=== PATIENT | female | born 1950 | race American Indian/Alaskan Native ===

== ENCOUNTER 2019-06-05 03:49 | Emergency (ER) | payer MEDICARE ==
--- NOTE | 2019-06-05 05:04 | XRay Report ---
RIGHT HIP 2 VIEWS INDICATION / CLINICAL INFORMATION: Fall with right hip pain. COMPARISON: None available. FINDINGS: BONES / JOINT(S): No acute fracture or subluxation. There is mild lower lumbar spondylosis. SOFT TISSUES: No significant abnormality. ADDITIONAL FINDINGS: None. IMPRESSION: No acute abnormality. Signer Name: Dylan Madsen MD Signed: 06/05/2019 5:00 AM Workstation Name: [id number]
--- NOTE | 2019-06-05 05:29 | Event Note ---
ED Screening Note Date of service: 06/05/19 Time: : ED Screening Note: Patient here reports that she was lying on a air mattress in the air when out of the mattress and she was try to get up. She says she got up and went to put her back in a mattress and lay down and she started having right pelvis and hip pain. She reports the pain is 10 out of 10 excruciating. Denies any fall. Pain is sharp and shooting. Denies taking any medication. Patient came by EMS. Pain is constant. Denies similar pain in the past.. Patient has a history of diabetes, CVA and DC. Assessment/plan Right hip and pelvis pain suspect lumbar radiculopathy CT scan of the lumbar spine ordered. X-ray of right hip negative findings Patient to receive Toradol 30 mg IM and Tylenol 3 2 tablets p.o. Urinalysis to be collected This initial assessment/diagnostic orders/clinical plan/treatment(s) is/are subject to change based on patients health status, clinical progression and re- assessment by fellow clinical providers in the ED. Further treatment and workup at subsequent clinical providers discretion. Patient/guardian urged not to elope from the ED as their condition may be serious if not clinically assessed and managed. Initial orders include: CT scan lumbar spine, UA. Tylenol 3 and Toradol to ma nage pain
[2019-06-05] MEDS ORDERED: KETOROLAC 60 MG/2 ML INJ IM ONE (05:32)
[2019-06-05] MEDS ORDERED: ACETAMINOPHEN W/CODEINE 300-30 MG TAB PO ONE (05:32)
[2019-06-05 05:35] VITALS: BP 195/105
--- NOTE | 2019-06-05 08:37 | Cat Scan Report ---
CT LUMBAR SPINE WITHOUT CONTRAST INDICATION / CLINICAL INFORMATION: MAIN: rt pelvis/hip pain x2days. TECHNIQUE: Axial CT images were obtained through the lumbar spine. Sagittal and coronal reformatted images were produced. All CT scans at this location are performed using CT dose reduction for ALARA by means of a utomated exposure control. COMPARISON: None available. FINDINGS: VERTEBRAE: Vertebral body heights are maintained. No acute fracture identified. ALIGNMENT: There is approximately 6 mm anterolisthesis of L4 on L5 secondary to facet arthropathy. DISC SPACES: Mild to moderate degenerative disc disease throughout the lumbar spine. A disc bulge at L4-5 results in mild narrowing of the central canal to 9 mm AP and results in moderate right and mild left foraminal narrowing. FACET JOINTS: Moderate bilateral facet hypertrophy most prominent at L4-5 and L5-S1. SPINAL CANAL: Mild central canal narrowing at L4-5 as described above. SACRUM:No significant abnormality of the visualized sacrum. PARASPINAL SOFT TISSUES: No significant abnormality. ADDITIONAL FINDINGS: The urinary bladder is moderately distended. IMPRESSION: 1. No acute abnormality of the lumbar spine. 2. Mild to moderate degenerative disc and facet disease of the lumbar spine most prominent at L4-5 wh ere there is mild central stenosis and mild to moderate bilateral foraminal narrowing, right greater than left. Signer Name: Marian Alvarez MD Signed: 06/05/2019 8:33 AM Workstation Name: [id number]
--- NOTE | 2019-06-05 08:53 | Emergency Department Report ---
ED Extremity Problem HPI - General Chief complaint: Extremity Injury, Lower Stated complaint: (R) HIP PAIN Time Seen by Provider: 06/05/19 05:29 Source: patient Mode of arrival: Wheelchair Limitations: Physical Limitation - History of Present Illness Initial comments: Patient here reports that she was lying on a air mattress in the air when out of the mattress and she was try to get up. She says she got up and went to put her back in a mattress and lay down and she started having right pelvis and hip pain. She reports the pain is 10 out of 10 excruciating. Denies any fall. Pain is sharp and shooting. Denies taking any medication. Patient came by EMS. Pain is constant. Denies similar pain in the past.. Patient has a history of diabetes, CVA and MA. Severity scale (0 -10): 2 - Related Data Previous Rx's Medication Instructions Recorded Last Taken Type Meloxicam [Mobic] 7.5 mg PO QDAY #15 tablet 06/05/19 Unknown Rx Allergies Allergy/AdvReac Type Severity Reaction Status Date / Time No Known Allergies Allergy Unverified 06/05/19 03:51 ED Review of Systems ROS: Stated complaint: (R) HIP PAIN Other details as noted in HPI ED Past Medical Hx - Past Medical History Previous Medical History?: Yes Hx CVA: Yes (2015) Hx Heart Attack/AMI: Yes (2013) Hx Diabetes: Yes Hx Asthma: Yes - Surgical History Past Surgical History?: No - Social History Smoking Status: Never Smoker - Medications Home Medications: Home Medications Medication Instructions Recorded Confirmed Last Taken Type Meloxicam [Mobic] 7.5 mg PO QDAY #15 tablet 06/05/19 Unknown Rx ED Physical Exam - General Limitations: Physical Limitation ED Course Vital Signs 06/05/19 05:34 Temperature 97.6 F Pulse Rate 101 H Respiratory 18 Rate Blood Pressure 195/105 [Left] O2 Sat by Pulse 97 Oximetry ED Medical Decision Making - Radiology Data Radiology results: report reviewed Referring Physician:ED DOCPatient Name:RIKA SCALESYPatient ID:[id number] of :[id number]:FemaleAccession:[id number] Date:9064-10-29Qkazre Status:Finalized Findings [facility] [address] [place] [address] XRay Report Signed Patient: RIKA RUTH MR#: [id number] : 1950 Acct:[id number] Age/Sex: 69 / F ADM Date: 06/05/19 Loc: ED Attending Dr: Ordering Physician: ROBSON POSADAS MD Date of Service: 06/05/19 Procedure(s): XR hip 2-3V RT Accession Number(s): [id number] cc: ROBSON POSADAS MD Fluoro Time In Minutes: RIGHT HIP 2 VIEWS INDICATION / CLINICAL INFORMATION: Fall with right hip pain. COMPARISON: None available. FINDINGS: BONES / JOINT(S): No acute fracture or subluxation. There is mild lower lumbar s pondylosis. SOFT TISSUES: No significant abnormality. ADDITIONAL FINDINGS: None. IMPRESSION: No acute abnormality. Signer Name: Carmelina Madsen MD Signed: 06/05/2019 5:00 AM Workstation Name: [email or web address] Transcribed By: RT Dictated By: Carmelina Madsen MD Electronically Authenticated By: Carmelian Madsen MD Signed Date/Time: 06/05/19 0500 DD/ 0459 TD/TT: Patient: RIKA RUTH MR#: [id number] : 1950 Acct:[id number] Age/Sex: 69 / F ADM Date: 06/05/19 Loc: ED Attending Dr: Ordering Physician: MONTSE CHAUHAN Date of Service: 06/05/19 Procedure(s): CT lumbar spine wo con Accession Number(s): [id number] cc: MONTSE CHAUHAN CT LUMBAR SPINE WITHOUT CONTRAST INDICATION / CLINICAL INFORMATION: MAIN: rt pelvis/hip pain x2days. TECHNIQUE: Axial CT images were obtained through the lumbar spine. Sagittal and coronal reformatted images were produced. All CT scans at this location are performed using CT dose reduction for ALARA by means of automated exposure control. COMPARISON: None available. FINDINGS: VERTEBRAE: Vertebral body heights are maintained. No acute fracture identified. ALIGNMENT: There is approximately 6 mm anterolisthesis of L4 on L5 secondary to facet arthropathy. DISC SPACES: Mild to moderate degenerative disc disease throughout the lumbar spine. A disc bulge at L4-5 results in mild narrowing of the central canal to 9 mm AP and results in moderate right and mild left foraminal narrowing. FACET JOINTS: Moderate bilateral facet hypertrophy most prominent at L4-5 and L5-S1. SPINAL CANAL: Mild central canal narrowing at L4-5 as described above. SACRUM:No significant abnormality of the visualized sacrum. PARASPINAL SOFT TISSUES: No significant abnormality. ADDITIONAL FINDINGS: The urinary bladder is moderately distended. IMPRESSION: 1. No acute abnormality of the lumbar spine. 2. Mild to moderate degenerative disc and facet disease of the lumbar spine most prominent at L4-5 where there is mild central stenosis and mild to moderate bilateral foraminal narrowing, right greater than left. Signer Name: Marian Alvarez MD Signed: 06/05/2019 8:33 AM Workstation Name: [id number] Transcribed By: [facility] Dictated By: Marian Alvarez MD Electronically Authenticated By: Marian Alvarez MD Signed Date/Time: 06/05/19832 DD/ 2 TD/TT: - Medical Decision Making Patient here reports that she was lying on a air mattress in the air when out of the mattress and she was try to get up. She says she got up and went to put her back in a mattress and lay down and she started having right pelvis and hip pain. She reports the pain is 10 out of 10 excruciating. Denies any fall. Pain is sharp and shooting. Denies taking any medication. Patient came by EMS. Pain is constant. Denies similar pain in the past.. Patient has a history of diabetes, CVA and MA. Hip x-ray is negative CT scan shows bilateral stenosis of the foramen 5 foot right worse than left. Shows moderate amount of degenerative disc disease. No fractures or subluxations or dislocations. Patient be discharged home on Mobic and she can take Tylenol extra strength. Patient is to follow-up with her primary care provider. Critical care attestation.: If time is entered above; I have spent that time in minutes in the direct care of this critically ill patient, excluding procedure time. ED Disposition Clinical Impression: Right leg pain, Degenerative joint disease (DJD) of hip, Degenerative globe disease Disposition: TO HOME OR SELFCARE Is pt being admited?: No Does the pt Need Aspirin: No Condition: Stable Instructions: Arthralgia (ED), Lumbar Radiculopathy (ED) Additional Instructions: Your CAT scan shows no acute fractures or subluxations or dislocations. It does show moderate amount of degenerative changes mild central stenosis and mild to moderate bilateral foraminal narrowing, right greater than left. Take Mobic once a day for pain management. I recommend following up with an orthopedic provider and your primary care provider. Prescriptions: Meloxicam [Mobic] 7.5 mg PO QDAY #15 tablet Referrals: PRIMARY MD BANDAR [Primary Care Provider] - 3-5 Days CARMELINA GOMEZ MD [Staff Physician] - 3-5 Days
[2019-06-05] MEDS ORDERED: oxyCODONE 5 MG TAB PO ONE (09:28)
[2019-06-05] MEDS ORDERED: oxyCODONE /ACETAMINOPHEN 5-325MG TAB ONE (09:30)
== END 2019-06-05 09:19 | disposition home or self-care (01) ==
LOC: ED 03:49
DX: M16.11 Unilateral primary osteoarthritis, right hip (principal); E11.9 Type 2 diabetes mellitus without complications; J45.909 Unspecified asthma, uncomplicated; I25.2 Old myocardial infarction; Z86.73 Personal history of transient ischemic attack (TIA), and cerebral infarction without residual deficits
CPT/HCPCS: 72131; 96372; J1885